=== PATIENT | female | born 1960 | race Caucasian/White ===

== ENCOUNTER 2022-12-31 18:51 | Emergency (ER) | payer BC, OTHER, SELFPAY ==
[2022-12-31 18:54] VITALS: BP 183/98; PULSE 83; RESP 18; TEMP 36.8; O2SAT 98; BMI 26.3
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
[2022-12-31 19:45] VITALS: BP 167/98; PULSE 88; RESP 18; O2SAT 99
== END 2022-12-31 21:37 | disposition home or self-care (01) ==
PROVIDERS: Emergency Provider Emergency Medicine
DX: Z04.1 Encounter for examination and observation following transport accident (principal)
CPT/HCPCS: 71045; 72125; 73130; 99284